=== PATIENT | male | born 1965 | race African-American/Black ===

== ENCOUNTER 2019-06-13 12:31 | Inpatient (IN) | payer OTHER ==
[2019-06-13 13:37] VITALS: BMI 27.6
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
[2019-06-13] MEDS ORDERED: P-EPHED 60MG/TRIPROLIDI 2.5MG TABLET PO PRN (15:45)
[2019-06-13] MEDS ORDERED: BISMUTH SUBSALICYLATE 524 MG/30 ML UD PO PRN (15:45)
[2019-06-13] MEDS ORDERED: IBUPROFEN 400 MG TABLET (FP) PO PRN (15:45)
[2019-06-13] MEDS ORDERED: MENTHOL/PHENOL 1 EACH UD MM PRN (15:45)
[2019-06-13] MEDS ORDERED: METHOCARBAMOL 500 MG TABLET PO PRN (15:45)
[2019-06-13] MEDS ORDERED: ONDANSETRON *ODT* 4 MG TABLET SL PRN (15:45)
[2019-06-13] MEDS ORDERED: MAGNESIUM HYDROX 2400MG/30ML ORAL SUSPENSION 30 ML CUP PO PRN (15:45)
[2019-06-13] MEDS ORDERED: MAGNESIUM CITRATE 300 ML BOTTLE PO PRN (15:45)
[2019-06-13] MEDS ORDERED: hydrOXYzine PAMOATE 25 MG CAPSULE (FP) PO PRN (15:45)
[2019-06-13] MEDS ORDERED: diazePAM 5 MG TABLET PO PRN (15:45)
[2019-06-13] MEDS ORDERED: diazePAM 5 MG TABLET PO ONE (15:45)
[2019-06-13] MEDS ORDERED: NICOTINE POLACRILEX 4 MG GUM BUC PRN (15:45)
[2019-06-13] MEDS ORDERED: ACETAMINOPHEN 325 MG TABLET (FP) PO PRN ×2 (15:45)
[2019-06-13] MEDS ORDERED: MAG HYDROX/AL HYDROX/SIMETH 30 ML UNIT-DOSE CUP PO PRN (15:45)
[2019-06-13] MEDS ORDERED: ALBUTEROL SO4 8 GM HFA INHALER IH PRN (15:49)
--- NOTE | 2019-06-13 19:41 | PN ---
[facility] Progress Note Note: abnormal ekg bradycardia, new patient, asymptomatic increase fluids repeat ekg in AM continue to monitor
[2019-06-13] MEDS: diazePAM 5 MG TABLET PO SCH (22:23)
[2019-06-13] MEDS: THIAMINE HCL 100 MG TABLET (FP) PO SCH (22:23)
[2019-06-14] MEDS: diazePAM 5 MG TABLET PO SCH ×3 (05:05→22:04)
[2019-06-14] MEDS: NICOTINE 21 MG/24 HOURS TOPICAL PATCH TD SCH (10:10)
[2019-06-14] MEDS: PRENATAL VITAMINS W/ FOLIC ACID TABLET (FP) PO SCH (10:10)
[2019-06-14 10:13] LABS: HEMATOCRIT 42.1 % (35.4-49); HEMOGLOBIN 13.7 GM/dL (11.7-16.9); MCH 29.5 pg (25.7-33.7); MCHC 32.4 g/dl (32.0-35.9); MEAN PLT VOLUME 9.1 fl (7.5-11.1); PLATELET COUNT 188 K/MM3 (134-434); RBC 4.63 M/mm3 (4.00-5.60); RDW 14.3 % (11.9-15.9); WHITE BLOOD COUNT 2.9 K/mm3 (4.0-10.0)
[2019-06-14 10:22] LABS: ALK PHOS 62 U/L (45-117); ANION GAP 5 MMOL/L (8-16); BILIRUBIN,TOTAL < 0.1 mg/dL (0.2-1); BLOOD UREA NITROGEN 13.8 mg/dL (7-18); CALCIUM 8.4 mg/dL (8.5-10.1); CHLORIDE 108 mmol/L (98-107); CO2 27 mmol/L (21-32); CREATININE 0.9 mg/dL (0.55-1.3); GLUCOSE,RANDOM 95 mg/dL (74-106); POTASSIUM 4.3 mmol/L (3.5-5.1); SGOT/AST 17 U/L (15-37); SGPT/ALT 29 U/L (13-61); SODIUM 140 mmol/L (136-145); TOT PROT 6.1 g/dl (6.4-8.2)
--- NOTE | 2019-06-14 13:00 | EKG ---
Test Reason : Blood Pressure : / mmHG Vent. Rate : 053 BPM Atrial Rate : 053 BPM P-R Int : 194 ms QRS Dur : 088 ms QT Int : 414 ms P-R-T Axes : 051 046 028 degrees QTc Int : 388 ms SINUS BRADYCARDIA MODERATE VOLTAGE CRITERIA FOR LVH, MAY BE NORMAL VARIANT NONSPECIFIC ST ABNORMALITY EARLY REPOLARIZATION ABNORMAL ECG NO PREVIOUS ECGS AVAILABLE Confirmed by SCOUT ALMARAZ MD ([id number]) on 06/14/2019 12:59:58 PM Referred By: Confirmed By:SCOUT ALMARAZ MD
--- NOTE | 2019-06-14 14:12 | PN ---
[facility] CIWA - CIWA Score Nausea/Vomitin-Mild Nausea/No Vomiting Muscle Tremors: 2 Anxiety: 2 Agitation: 2 Paroxysmal Sweats: No Perspiration Orientation: 0-Oriented Tacttile Disturbances: 1-Very Mild Itch/Numbness Auditory Disturbances: 0-None Visual Disturbances: 0-None Headache: 1-Very Mild CIWA-Ar Total Score: 9 S Progress Note (SOAP) Subjective: alert,irritable,anxious,interrupted sleep,pain in the body Objective: 06/14/19 14:11 Vital Signs Temperature 96.2 F L 06/14/19 13:20 Pulse Rate 76 06/14/19 13:20 Respiratory Rate 16 06/14/19 13:20 Blood Pressure 141/96 06/14/19 13:20 O2 Sat by Pulse Oximetry (%) 06/14/19 14:15 Laboratory Last Values WBC 2.9 K/mm3 (4.0-10.0) L 06/14/19 08:00 RBC 4.63 M/mm3 (4.00-5.60) 06/14/19 08:00 Hgb 13.7 GM/dL (11.7-16.9) 06/14/19 08:00 Hct 42.1 % (35.4-49) 06/14/19 08:00 MCV 91.0 fl (80-96) 06/14/19 08:00 MCH 29.5 pg (25.7-33.7) 06/14/19 08:00 MCHC 32.4 g/dl (32.0-35.9) 06/14/19 08:00 RDW 14.3 % (11.9-15.9) 06/14/19 08:00 Plt Count 188 K/MM3 (134-434) 06/14/19 08:00 MPV 9.1 fl (7.5-11.1) 06/14/19 08:00 Sodium 140 mmol/L (136-145) 06/14/19 08:00 Potassium 4.3 mmol/L (3.5-5.1) 06/14/19 08:00 Chloride 108 mmol/L (98-107) H 06/14/19 08:00 Carbon Dioxide 27 mmol/L (21-32) 06/14/19 08:00 Anion Gap 5 MMOL/L (8-16) L 06/14/19 08:00 BUN 13.8 mg/dL (7-18) 06/14/19 08:00 Creatinine 0.9 mg/dL (0.55-1.3) 06/14/19 08:00 Est GFR (CKD-EPI)AfAm 110.27 06/14/19 08:00 Est GFR (CKD-EPI)NonAf 95.14 06/14/19 08:00 Random Glucose 95 mg/dL (74-106) 06/14/19 08:00 Calcium 8.4 mg/dL (8.5-10.1) L 06/14/19 08:00 Total Bilirubin < 0.1 mg/dL (0.2-1) L 06/14/19 08:00 AST 17 U/L (15-37) 06/14/19 08:00 ALT 29 U/L (13-61) 06/14/19 08:00 Alkaline Phosphatase 62 U/L (45-117) 06/14/19 08:00 Total Protein 6.1 g/dl (6.4-8.2) L 06/14/19 08:00 Albumin 3.0 g/dl (3.4-5.0) L 06/14/19 08:00 RPR Titer Nonreactive (NONREACTIVE) 06/14/19 08:00 Assessment: 06/14/19 14:12 withdrawal symptom Plan: continue detox valium regimen,wbc is 2,900,will repeat cbc in amm
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
[2019-06-14] MEDS: THIAMINE HCL 100 MG TABLET (FP) PO SCH (22:04)
[2019-06-14] MEDS: MELATONIN 5 MG TABLETS PO PRN (22:04)
[2019-06-15] MEDS: diazePAM 5 MG TABLET PO SCH ×2 (06:12→18:08)
[2019-06-15] MEDS: PRENATAL VITAMINS W/ FOLIC ACID TABLET (FP) PO SCH (10:06)
[2019-06-15] MEDS: NICOTINE 21 MG/24 HOURS TOPICAL PATCH TD SCH (10:06)
[2019-06-15 10:29] LABS: HEMATOCRIT 43.5 % (35.4-49); MCH 29.4 pg (25.7-33.7); MCHC 32.2 g/dl (32.0-35.9); MEAN CELL VOLUME 91.3 fl (80-96); MEAN PLT VOLUME 9.2 fl (7.5-11.1); PLATELET COUNT 199 K/MM3 (134-434); RBC 4.77 M/mm3 (4.00-5.60); RDW 14.6 % (11.9-15.9); WHITE BLOOD COUNT 3.7 K/mm3 (4.0-10.0)
--- NOTE | 2019-06-15 12:15 | PN ---
[facility] CIWA - CIWA Score Nausea/Vomitin-No Nausea/No Vomiting Muscle Tremors: None Anxiety: 2 Agitation: 0-Normal Activity Paroxysmal Sweats: 2 Orientation: 0-Oriented Tacttile Disturbances: 0-None Auditory Disturbances: 0-None Visual Disturbances: 0-None Headache: 0-None Present CIWA-Ar Total Score: 4 [facility] Progress Note (SOAP) Subjective: c/o sweats and anxiety. Objective: 06/15/19 12:14 Vital Signs 06/15/19 06/15/19 06:10 09:15 Temperature 97.3 F L 97.9 F Pulse Rate 78 75 Respiratory 18 18 Rate Blood Pressure 150/83 157/86 Laboratory Last Values WBC 3.7 K/mm3 (4.0-10.0) L 06/15/19 08:10 RBC 4.77 M/mm3 (4.00-5.60) 06/15/19 08:10 Hgb 14.0 GM/dL (11.7-16.9) 06/15/19 08:10 Hct 43.5 % (35.4-49) 06/15/19 08:10 MCV 91.3 fl (80-96) 06/15/19 08:10 MCH 29.4 pg (25.7-33.7) 06/15/19 08:10 MCHC 32.2 g/dl (32.0-35.9) 06/15/19 08:10 RDW 14.6 % (11.9-15.9) 06/15/19 08:10 Plt Count 199 K/MM3 (134-434) 06/15/19 08:10 MPV 9.2 fl (7.5-11.1) 06/15/19 08:10 Sodium 140 mmol/L (136-145) 06/14/19 08:00 Potassium 4.3 mmol/L (3.5-5.1) 06/14/19 08:00 Chloride 108 mmol/L (98-107) H 06/14/19 08:00 Carbon Dioxide 27 mmol/L (21-32) 06/14/19 08:00 Anion Gap 5 MMOL/L (8-16) L 06/14/19 08:00 BUN 13.8 mg/dL (7-18) 06/14/19 08:00 Creatinine 0.9 mg/dL (0.55-1.3) 06/14/19 08:00 Est GFR (CKD-EPI)AfAm 110.27 06/14/19 08:00 Est GFR (CKD-EPI)NonAf 95.14 06/14/19 08:00 Random Glucose 95 mg/dL (74-106) 06/14/19 08:00 Calcium 8.4 mg/dL (8.5-10.1) L 06/14/19 08:00 Total Bilirubin < 0.1 mg/dL (0.2-1) L 06/14/19 08:00 AST 17 U/L (15-37) 06/14/19 08:00 ALT 29 U/L (13-61) 06/14/19 08:00 Alkaline Phosphatase 62 U/L (45-117) 06/14/19 08:00 Total Protein 6.1 g/dl (6.4-8.2) L 06/14/19 08:00 Albumin 3.0 g/dl (3.4-5.0) L 06/14/19 08:00 RPR Titer Nonreactive (NONREACTIVE) 06/14/19 08:00 Labs noted. Assessment: 06/15/19 12:14 AOX3, in no acute respiratory distress. Full ROM, ambulating in the unit. Withdrawal symptoms. For d/c tomorrow. Plan: continue detox. D/C in AM.
[2019-06-15] MEDS: THIAMINE HCL 100 MG TABLET (FP) PO SCH (22:16)
[2019-06-15] MEDS: MELATONIN 5 MG TABLETS PO PRN (22:17)
[2019-06-16] MEDS ORDERED: diazePAM 5 MG TABLET PO ONE (06:00)
[2019-06-16 09:19] VITALS: BP 166/92; PULSE 82; TEMP 98.1
[2019-06-16] MEDS: PRENATAL VITAMINS W/ FOLIC ACID TABLET (FP) PO SCH (10:03)
[2019-06-16] MEDS: NICOTINE 21 MG/24 HOURS TOPICAL PATCH TD SCH (10:04)
--- NOTE | 2019-06-16 14:24 | DS ---
[facility] Detox Discharge Summary Admission Date: 06/13/19 Discharge Date: 06/16/19 - History Present History: Alcohol Dependence Additional Comments: 54 years old male admitted on 06/13/19 for alcohol withdrawal sx management treated with valium detox regimen patient tolerated well alert oriented x 3 cardiac S1S2 regular rate rhythm respiratory clear lung bilaterally on auscultation skin warm and dry Pertinent Past History: encourage the patient returning to his asthma provider for bp monitoring - Physical Exam Results Vital Signs: Vital Signs Temperature 98.1 F 06/16/19 09:18 Pulse Rate 82 06/16/19 09:18 Respiratory Rate 18 06/16/19 09:18 Blood Pressure 166/92 06/16/19 09:18 O2 Sat by Pulse Oximetry (%) repeat bp 138/74 Pertinent Admission Physical Exam Findings: alcohol withdrawal sx Vital Signs Temperature 98.1 F 06/16/19 09:18 Pulse Rate 82 06/16/19 09:18 Respiratory Rate 18 06/16/19 09:18 Blood Pressure 166/92 06/16/19 09:18 O2 Sat by Pulse Oximetry (%) Laboratory Last Values WBC 3.7 K/mm3 (4.0-10.0) L 06/15/19 08:10 RBC 4.77 M/mm3 (4.00-5.60) 06/15/19 08:10 Hgb 14.0 GM/dL (11.7-16.9) 06/15/19 08:10 Hct 43.5 % (35.4-49) 06/15/19 08:10 MCV 91.3 fl (80-96) 06/15/19 08:10 MCH 29.4 pg (25.7-33.7) 06/15/19 08:10 MCHC 32.2 g/dl (32.0-35.9) 06/15/19 08:10 RDW 14.6 % (11.9-15.9) 06/15/19 08:10 Plt Count 199 K/MM3 (134-434) 06/15/19 08:10 MPV 9.2 fl (7.5-11.1) 06/15/19 08:10 Sodium 140 mmol/L (136-145) 06/14/19 08:00 Potassium 4.3 mmol/L (3.5-5.1) 06/14/19 08:00 Chloride 108 mmol/L (98-107) H 06/14/19 08:00 Carbon Dioxide 27 mmol/L (21-32) 06/14/19 08:00 Anion Gap 5 MMOL/L (8-16) L 06/14/19 08:00 BUN 13.8 mg/dL (7-18) 06/14/19 08:00 Creatinine 0.9 mg/dL (0.55-1.3) 06/14/19 08:00 Est GFR (CKD-EPI)AfAm 110.27 06/14/19 08:00 Est GFR (CKD-EPI)NonAf 95.14 06/14/19 08:00 Random Glucose 95 mg/dL (74-106) 06/14/19 08:00 Calcium 8.4 mg/dL (8.5-10.1) L 06/14/19 08:00 Total Bilirubin < 0.1 mg/dL (0.2-1) L 06/14/19 08:00 AST 17 U/L (15-37) 06/14/19 08:00 ALT 29 U/L (13-61) 06/14/19 08:00 Alkaline Phosphatase 62 U/L (45-117) 06/14/19 08:00 Total Protein 6.1 g/dl (6.4-8.2) L 06/14/19 08:00 Albumin 3.0 g/dl (3.4-5.0) L 06/14/19 08:00 RPR Titer Nonreactive (NONREACTIVE) 06/14/19 08:00 lab noted - Treatment Hospital Course: Detox Protocol Followed, Detoxed Safely, Responded well, Discharged Condition Good, Rehab Referral Accepted Patient has Accepted a Rehab Referral to: [facility] - Medication Discharge Medications: Ambulatory Orders Albuterol Sulfate [Proventil Hfa] 2 puff PRN 06/13/19 NK [No Known Home Medication] 06/13/19 - Diagnosis (1) Asthma Status: Chronic Qualifiers: Asthma severity: mild Asthma persistence: intermittent Asthma complication type: with status asthmaticus Qualified Code(s): J45.22 - Mild intermittent asthma with status asthmaticus (2) Hypertension Status: Chronic Qualifiers: Hypertension type: essential hypertension Qualified Code(s): I10 - Essential (primary) hypertension (3) Alcohol dependence with withdrawal, uncomplicated Status: Acute (4) Nicotine dependence Status: Acute Qualifiers: Nicotine product type: cigarettes Substance use status: in withdrawal Qualified Code(s): F17.213 - Nicotine dependence, cigarettes, with withdrawal - AMA Did Patient Leave Against Medical Advice: No CIWA Score - CIWA Score Nausea/Vomitin-No Nausea/No Vomiting Muscle Tremors: None Anxiety: 1-Mildly Anxious Agitation: 0-Normal Activity Paroxysmal Sweats: 1-Minimal Palms Moist Orientation: 0-Oriented Tacttile Disturbances: 0-None Auditory Disturbances: 0-None Visual Disturbances: 0-None Headache: 0-None Present CIWA-Ar Total Score: 2
== END 2019-06-16 11:03 | disposition home or self-care (01) | DRG 774 ==
LOC: YASAS 12:31 → Y3N 16:44
PROVIDERS: ADMIT Allergy & Immunology; ATTEND Allergy & Immunology
PROC: HZ2ZZZZ Detoxification Services for Substance Abuse Treatment (ICD-10-PCS; principal; 2019-06-13)
DX: F10.230 Alcohol dependence with withdrawal, uncomplicated (principal); F14.20 Cocaine dependence, uncomplicated; F17.213 Nicotine dependence, cigarettes, with withdrawal; I10 Essential (primary) hypertension; J45.22 Mild intermittent asthma with status asthmaticus; R00.1 Bradycardia, unspecified; Z91.5 Personal history of self-harm
CPT/HCPCS: 36415; 80053; 85027; 86593; 93005; 93010